=== PATIENT | female | born 2005 | race Two or more races ===

== ENCOUNTER 2024-04-04 16:49 | Outpatient (CLI) | payer MEDICAID, SELFPAY ==
[2024-04-04 17:02] VITALS: BP 110/66; RESP 16; TEMP 36.9; BMI 24.3
[2024-04-04 17:11] VITALS: BP 110/66; PULSE 57
--- NOTE | 2024-04-04 18:41 | XR_ITS ---
Examination: Biophysical profile, ultrasound Date and time of exam: April 04, 2024 1822 hrs. Indications: Small for gestational age Technique: Multiple transabdominal sonographic images of the pelvis abdomen obtained. Attention is directed to the breathing movement, gross body movement, amniotic fluid volume and tone. Findings: Amniotic fluid index 6.6 cm Total biophysical profile is 8 of 8. breathing movement is 2. Gross body movement is 2. tone is 2. Qualitative amniotic fluid volume is 2 Impression: Biophysical profile is 8 of 8.
== END 2024-04-04 20:22 | disposition home or self-care (01) ==
LOC: S4S1 16:51 → S4SX 20:04
PROVIDERS: Referring Provider Advanced Practice Midwife; Visit Provider Advanced Practice Midwife
DX: O36.8130 Decreased fetal movements, third trimester, not applicable or unspecified (principal); Z3A.39 39 weeks gestation of pregnancy
CPT/HCPCS: 59025; 76819

== ENCOUNTER 2024-04-15 00:38 | Inpatient (IN) | payer MEDICAID, SELFPAY ==
[2024-04-15] VITALS (341 sets, daily range): BP systolic 91–217; BP diastolic 50–92; PULSE 61–131; RESP 16–99; TEMP 36.6–37; O2SAT 86–100; BMI 24.8
[2024-04-15] MEDS: MORPHINE SULF INJ 10 MG/ML VIAL 5 MG IM (01:12)
[2024-04-15] MEDS: RINGERS LACTATED 1000 ML 1,000 ML 100 ML IV ×3 (04:00→16:50)
--- NOTE | 2024-04-15 04:00 | ESHP_ITS ---
Documentation for date of: 04/15/24 OB Labor/Induct. HPI History of Present Illness Chief complaint: 19 y/o 40w 4d presents to L&D in early labor at 3 cm : 2 Para: 0 Term pregnancies: 0 pregnancies: 0 Living children: 0 History of Abortions: Spontaneous and Elective: 0 History of Vaginal deliveries: 0 History of sections: No History of : No HELEN: 04/11/24 Gestational Age (weeks): 40 Gestational Age (days): 4 History of present illness: 19 y/o 40w 4d presents to L&D in early labor at 3 cm vertex lg 2-3 minutes with a category 1 tracing. GBS is neg. Pt has a hx of 1 SAB. Pt was a transfer of care from [facility] at 25 weeks with incomplete records. Pt was followed [facility] and small 2.8 mm VSD was noted. growth at 14%ile. EFW 3000g History of Present Dating criteria: based on LMP only Adequate Care: No Ultrasounds: normal mid trimester US and abnormal US findings (2.8 mm VSD noted) Obstetrical complications: other (SGA fetus) Labs Maternal Blood Type: O Pos Labs: Positive: Rubella Titre, Negative: RPR, Hepatitis B, HIV, Chlamydia, Gonorrhea and Group Beta Strep and Unknown: Herpes Type 1, Herpes Type 2 and Covid-19 Review of Systems Review of Systems Systems Reviewed: All systems reviewed, normal except as documented Past Medical History Surgical History SURGICAL: Negative Section Meds Home Medications and Allergies Home Medications ?Medication ?Instructions ?Recorded ?Confirmed ?Type vits no.130-ferrous fum tab 04/15/24 History 27 mg iron-folic acid 800 mcg tablet ( Vitamin) Allergies Allergy/AdvReac Type Severity Reaction Status Date / Time No Known Allergies Allergy Verified 04/15/24 00:44 OB Exam Physical Exam Vital signs: Temp Pulse Resp BP Pulse Ox 97.9 F 71 19 127/68 100 04/15/24 01:08 04/15/24 08:22 04/15/24 01:08 04/15/24 08:22 04/15/24 08:29 Constitutional Constitutional: moderate distress (Secondary to painful contractions) Routine HEENT Exam Head: Present normocephalic and atraumatic Eye: Present EOMI, PERRL and normal accommodation ENT: Present mucous membranes moist Routine Neck Exam Neck: Present full ROM Routine Respiratory Exam Respiratory: Absent respiratory distress Routine Cardiovascular Exam Cardiovascular: Present RRR Routine Abdominal Exam Abdominal: Present soft Comments: Gravid Uterus EFW 3000g Routine Exam External: Present normal urethra appearance; Absent lesions Detailed Labor and Delivery Exam Dilation (cm): 3 Effacement (%): 70 Cervix position: posterior station: -3 Consistency: soft Presentation: Vertex Membranes: intact Baseline heart rate: 130 monitor accelerations: 15x15 monitor decelerations: None group home variability: Moderate (11-25) Contraction frequency (min): 2-3 minutes Routine Extremities Exam Extremities: Present full ROM Routine Back/Spine/Pelvis Exam Back/Spine: Present full ROM Routine Skin Exam Skin: Present intact, dry and warm Routine Neurological Exam Neurological: Present alert, oriented X3 and CN II-XII intact Routine Psychiatric Exam Psychiatric: Present normal affect and normal thought process OB Results Labs 04/15/24 04:00 Labs: Short CBC 04/15/24 Range/Units 04:00 WBC 12.5 H (4.5-11.0) Thou/mm3 Hgb 11.6 L (12.0-16.0) g/dL Hct 34.1 L (36.0-46.0) % Plt Count 202 (140-440) Thou/mm3 OB Assessment & Plan Assessment and Plan (1) Normal labor: Status: Acute (2) 40 weeks gestation of : Status: Acute Additional Plan Induction method: none Plan: augmentation, anticipate NVD and consult prn Additional Plan Comment: Routine admit orders Consult anesthesia for an epidural Continuous EFM
[2024-04-15] MEDS: fentaNYL CIT INJ 50 mCg/ML AMP 2ML 100 MCG IV ×3 (04:01→21:44)
[2024-04-15 04:22] LABS: Basophils % (Auto) 0 % (0-2.5); Eosinophils % (Auto) 0 % (0-10); Hematocrit 34.1 % (36.0-46.0); Hemoglobin 11.6 g/dL (12.0-16.0); Immature Granulocytes % (Auto) 0 % (0-0); Immature Granulocytes Auto 0.05 Thou/mm3 (0.00-0.00); Lymphocytes # (Auto) 1.8 Thou/mm3 (1.0-4.8); Lymphocytes % (Auto) 14 % (10-50); Mean Corpuscular Hemoglobin 27.2 pg (25.0-35.0); Mean Corpuscular Volume 80 fL (80-100); Monocytes # (Auto) 0.4 Thou/mm3 (0.0-0.8); Monocytes % (Auto) 3 % (0-12); Neutrophils # (Auto) 10.2 Thou/mm3 (1.8-7.7); Neutrophils % (Auto) 82 % (37-80); Nucleated Red Blood Cell % 0 /100 WBC (0); Platelet Count 202 Thou/mm3 (140-440); RDW Standard Deviation 38.4 fL (36.4-46.3); Red Blood Count 4.26 Miln/mm3 (4.00-5.20); White Blood Count 12.5 Thou/mm3 (4.5-11.0)
[2024-04-15] MEDS: RINGERS LACTATED 500 ML 500 ML 999 ML IV (04:30)
[2024-04-15 04:57] LABS: Syphilis Nonreactive (Nonreactive)
--- NOTE | 2024-04-15 07:11 | PC.NURSE ---
0600: urine sample collected for UDS for late to care. Pt has already been given dose of Morphine IM and Fentanyl IV prior to collection of sample.
--- NOTE | 2024-04-15 08:41 | PD.LDPN ---
Documentation for date of: 04/15/24 OB Labor Progress Note Pain Control Pain control: epidural Pelvic Exam Dilation (cm): 5 Effacement (%): 80 station: -2 Amniotic membrane status: Ruptured (SROM- clear) Contractions Monitor mode: External Contraction frequency: 2-3 minutes Contraction intensity: Moderate Status status: Category l Assessment and Plan Assessment: other (Latent labor) Plan OB labor note: continuous present management Comments: Pt is progressing well since admission Comfortable with the epidural Anticipate
[2024-04-15 09:49] LABS: Amphetamine/Metham Scrn,Ur OB Negative (Negative); Benzoylecgonine Screen, Ur OB Negative (Negative); Opiate Screen,Urine OB Positive (Negative); THC Screen,Urine OB Negative (Negative)
[2024-04-15 09:50] LABS: Opiates U Confirm* See Sep Rpt
--- NOTE | 2024-04-15 20:03 | PD.LDPN ---
Documentation for date of: 04/15/24 OB Labor Progress Note Pain Control Pain control: epidural Pelvic Exam Dilation (cm): 5 Effacement (%): 80 station: 0 Amniotic membrane status: Ruptured Contractions Monitor mode: External Contraction frequency: 2-3 minutes Contraction intensity: Moderate Status status: Category l Assessment and Plan Assessment: other (Latent labor) Plan OB labor note: continuous present management Comments: AROM performed on the forebag- cleat to bloody fluids noted Start low dose pitocin per protocol Updated Dr. Lamb Anticipate
[2024-04-15] MEDS: HYDROmorphone INJ 2 MG/ML VIAL 0.4 MG IVP (20:47)
[2024-04-15] MEDS: DiphenhydrAMINE INJ 50 MG/ML VIAL 25 MG IVP (21:50)
[2024-04-16] VITALS (118 sets, daily range): BP systolic 90–144; BP diastolic 54–84; PULSE 75–181; RESP 15–16; TEMP 36.7–37.2; O2SAT 90–100
[2024-04-16] MEDS: OXYTOCIN in NS 30 units 30 UNIT/500 ML BAG IV (01:26)
--- NOTE | 2024-04-16 04:59 | PD.LDPN ---
Documentation for date of: 04/16/24 OB Labor Progress Note Pain Control Pain control: epidural Pelvic Exam Dilation (cm): 10 Effacement (%): 100 station: +1 Amniotic membrane status: Ruptured Contractions Monitor mode: External Contraction frequency: 2-3 minutes Contraction duration: 40-60 Contraction phase: Contraction Contraction intensity: Moderate Status status: Category ll Assessment and Plan Assessment: other (2nd stage ) Comments: Active pushing for 20 minutes pt did not move the head, pt has no feeling or urse to push Turned off the epidural Let pt labor down for 30 minutes until she has urge to push Anticipate
[2024-04-16] MEDS: RINGERS LACTATED 1000 ML 1,000 ML 100 ML IV (05:07)
[2024-04-16] MEDS: MINERAL OIL 30 ML UDC TOP (06:45)
[2024-04-16] MEDS: OXYTOCIN in NS 20 units 20 UNIT/1,000 ML BAG 125 UNIT IV (06:57)
[2024-04-16] MEDS: LIDOCAINE HCL 1% 20 ML VIAL INFL (06:58)
[2024-04-16] MEDS: TRANEXAMIC ACID 1,000 MG IVPB 1,000 MG/100 ML BAG 200 MG IV (07:08)
--- NOTE | 2024-04-16 07:18 | OBDSUM_ITS ---
Data ([place]) Data Hx Section: No Maternal Blood Type: O Pos Rubella Titre: Positive RPR: Non-reactive Labs: Negative: RPR, Hepatitis B, HIV, Chlamydia, Gonorrhea and Group Beta Strep and Unknown: Herpes Type 1 and Herpes Type 2 : 2 Para: 0 Term: 0 : 0 Livin : 1 Delivery Data ([place]) Labor Data Stimulated/Augmented: No Induction: No ROM Date: 04/15/24 ROM Time: 07:35 Rupture Type: SROM Amniotic Fluid: Clear Delivery Data EDC: 04/11/24 EDC calculated by:: LMP Labor Onset Stage 1 Date: 04/16/24 Labor Onset Stage 1 Time: 00:34 Labor Onset Stage 2 Date: 04/16/24 Labor Onset Stage 2 Time: 04:18 Delivery Date: 04/16/24 Delivery Time: 06:55 Gestational age (weeks): 40 Gestational age (days): 5 Placenta Delivery Date: 04/16/24 Placenta Delivery Time: 06:57 Delivered by: Linda Muniz Delivery nurse: Bertha Weems Route Delivery Supervisor at delivery: No Support person(s) at delivery: FOB Other staff at delivery: Nursery Nurse Other staff at delivery: Nursery Nurse Other staff at delivery: 2nd Nurse Other staff at delivery: Verna Enciso Other staff at delivery: Chelsea Murguia Other staff at delivery: LOREE NEWTON Delivery Method Delivery: Vaginal Delivery Type: Spontaneous Presentation: Compound (Left hand) Position: OA Anesthesia Type Primary Anesthesia: Epidural Secondary Anesthesia: Spinal Delivery Room Medications Other Intrapartum Medications: No Placenta Placenta Delivery: Spontaneous Placenta Cultures Obtained: No Placenta Sent for Examination: No Cord Sample: Cord Blood Obtained Episiotomy Episiotomy: None Lacerations #1: Perineal: 1st degree Perineal repair Sutures used for repair: 3.0 Vicryl (CT) EBL Estimated blood loss (ml): 300 Umbilical Cord Umbilical Vessels: 3 Nuchal Cord: Not Applicable Body Cord: Not Applicable Additional Procedures patient pushed for about 2 hours and had an of a viable female . Infant delivered in compound presentation with a left posterior hand and arm delivered first then the anterior shoulder delivered with gentle downward traction and the body without complications. Infant placed on mother's abdomen. Vigorous cry upon delivery. Cord was clamped. Cut by FOB. Cord blood obtained. Three-vessel cord noted. Placenta expelled spontaneously and intact. Patient had a first-degree perineal laceration. Repaired using a 3-[address] suture. Excellent hemostasis achieved after vigorous fundal massage and removal of clots from the posterior fornix. EBL 300. Sponge and needle count correct. Mother and baby stable, skin to skin and bonding in LDR. Data ([place]) [place] Data Gender: Female Infant Weight Grams: 2990 1 Minute Total: 7 5 Minute Total: 9
[2024-04-16] MEDS: BENZO/LANO/ALOE (Dermoplast) 60 GM CAN 1 SPRAY TOP (07:29)
[2024-04-16] MEDS: IBUPROFEN TAB 400 MG TABLET 800 MG PO ×2 (10:58→19:16)
[2024-04-16 13:43] LABS: Basophils % (Auto) 0 % (0-2.5); Eosinophils % (Auto) 0 % (0-10); Hematocrit 26.4 % (36.0-46.0); Immature Granulocytes % (Auto) 1 % (0-0); Immature Granulocytes Auto 0.09 Thou/mm3 (0.00-0.00); Lymphocytes # (Auto) 1.6 Thou/mm3 (1.0-4.8); Lymphocytes % (Auto) 9 % (10-50); Mean Corpuscular HGB Conc 33.3 g/dl (31.0-37.0); Mean Corpuscular Hemoglobin 27.2 pg (25.0-35.0); Mean Corpuscular Volume 82 fL (80-100); Monocytes # (Auto) 0.7 Thou/mm3 (0.0-0.8); Monocytes % (Auto) 4 % (0-12); Neutrophils # (Auto) 14.4 Thou/mm3 (1.8-7.7); Neutrophils % (Auto) 86 % (37-80); Nucleated Red Blood Cell % 0 /100 WBC (0); Platelet Count 176 Thou/mm3 (140-440); RDW Standard Deviation 41.1 fL (36.4-46.3); Red Blood Count 3.24 Miln/mm3 (4.00-5.20); White Blood Count 16.8 Thou/mm3 (4.5-11.0)
[2024-04-16 13:52] LABS: Hemoglobin 8.8 g/dL (12.0-16.0)
[2024-04-17 05:13] VITALS: BP 113/71; PULSE 77; RESP 16; TEMP 36.3; O2SAT 96
[2024-04-17] MEDS: IBUPROFEN TAB 400 MG TABLET 800 MG PO (05:34)
--- NOTE | 2024-04-17 07:25 | ESDS_ITS ---
DS: Providers Provider Date of admission: 04/15/24 03:47 Primary care physician: Navi Willis MD Admitting Provider: Linda Muniz CNM Attending Provider on Admission: Prosper Tolliver MD Attending Provider on DC: Linda Muniz CNM Discharging Provider: Linda Muniz CNM Anticipated date of discharge: 04/17/24 DS: Diagnosis Discharge Diagnosis (1) Normal spontaneous vaginal delivery: Status: Acute (2) Encounter for care of lactating mother: Status: Acute (3) 40 weeks gestation of : Status: Acute (4) Normal labor: Status: Acute Problem List Completed Was Problem List Reviewed/Reconciled?: Yes Summary/Hosp Course Brief History: 19 y/o 40w 4d presents to L&D in early labor at 3 cm vertex lg 2-3 minutes with a category 1 tracing. GBS is neg. Pt has a hx of 1 SAB. Pt was a transfer of care from [place] at 25 weeks with incomplete records. Pt was followed [facility] and small 2.8 mm VSD was noted. growth at 14%ile. EFW 3000g. 04/16/24: patient pushed for about 2 hours and had an of a viable female . Infant delivered in compound presentation with a left posterior hand and arm delivered first then the anterior shoulder delivered with gentle downward traction and the body without complications. Infant placed on mother's abdomen. Vigorous cry upon delivery. Cord was clamped. Cut by FOB. Cord blood obtained. Three-vessel cord noted. Placenta expelled spontaneously and intact. Patient had a first-degree perineal laceration. Repaired using a 3-[address] suture. Excellent hemostasis achieved after vigorous fundal massage and removal of clots from the posterior fornix. EBL 300. Sponge and needle count correct. Mother and baby stable, skin to skin and bonding in LDR. 04/17/24: day 1. Patient is stable and afebrile. Doing well. Denies dizziness shortness of breath. Reports minimal bleeding. Uterus is nontender fundus firm minimal lochia. Patient is eager to go home. Discharge instructions given. Patient to follow-up with Linda Muniz CNM in 3 weeks Peripartum Data Delivery Method: Normal Vaginal Delivery Episiotomy Description: None Laceration Description: yes and see Delivery Summary 1: Gender: Female Disposition of : home Status at Discharge Cognitive/behavioral status at discharge: Alert and oriented x 3 Time Spent with Patient Time attestation: Total time spent providing and/or coordinating discharge services: Time spent: Greater than 30 minutes Exam Vital Signs Temp Pulse Resp BP Pulse Ox 98.6 F 105 H 16 136/78 H 97 04/16/24 00:38 04/16/24 07:02 04/15/24 15:11 04/16/24 07:17 04/16/24 06:54 Constitutional Constitutional: no acute distress Routine HEENT Exam Head: Present normocephalic and atraumatic Eye: Present EOMI, PERRL and normal accommodation ENT: Present mucous membranes moist Routine Neck Exam Neck: Present supple, full ROM and trachea midline Routine Respiratory Exam Respiratory: Present chest non-tender, lungs clear, normal breath sounds and no resp distress Routine Cardiovascular Exam Cardiovascular: Present RRR Routine Abdominal Exam Abdominal: Present soft and normoactive bowel sounds; Absent tenderness or distended Comments: Uterus nontender Fundus firm Routine Exam Patient deferred: external exam Routine Extremities Exam Extremities: Present full ROM, pulses intact and normal capillary refill; Absent calf tenderness or tenderness Routine Back/Spine/Pelvis Exam Back/Spine: Present full ROM Routine Skin Exam Skin: Present intact, dry and warm Routine Neurological Exam Neurological: Present alert, oriented X3 and CN II-XII intact Routine Psychiatric Exam Psychiatric: Present normal affect and normal thought process Discharge Plan Plan Patient Disposition: HOME (Self Care) Patient condition on transfer: Stable Prescriptions/Referrals Prescriptions/Med Rec: New ibuprofen 800 mg tablet 800 mg PO Q6H MDD 4 PRN (Reason: pain) Qty: 120 0RF docusate sodium [Colace] 100 mg capsule 100 mg PO BID Qty: 60 0RF lanolin 50 % ointment 1 applic topical TID PRN (Reason: skin irritation) Qty: 15 0RF Continued Vitamin 27 mg iron- 800 mcg tablet Patient Comments: TAKE 1 TABLET BY MOUTH ONCE A DAY Referrals: Linda Muniz CNM [Certified Nurse Butcher'S Assistant] - Patient/Caregiver Discharge Instructions Meds to Beds: No Discharge Activity: activity as tolerated Other Discharge Activity Instructions:: Follow-up with Linda Muniz CNM in 3 weeks Education Materials: Recognizing Labor, Stages of Labor, Labor Pain Manage Wo Meds Print Language: Zambian Stand Alone Forms: Steff Award Info., Patient Portal Info Letter, Work/Release Restrictions Discharge Order Discharge Orders: Discharge (Routine); Ordered 04/17/24 Ordered By: Linda Muniz Planned Discharge Date 04/17/24
[2024-04-17 08:00] VITALS: BP 106/69; PULSE 74; RESP 18; TEMP 36.8; O2SAT 98
== END 2024-04-17 12:55 | disposition home or self-care (01) | DRG 560 ==
LOC: S4SX 04-16 14:04 → S4NX 04-16 17:14
PROVIDERS: Admitting Provider Nurse Practitioner Women's Health; PCP Family Medicine; Visit Provider Obstetrics & Gynecology
DX: O36.5930 Maternal care for other known or suspected poor fetal growth, third trimester, not applicable or unspecified (principal); Z37.0 Single live birth; Z3A.40 40 weeks gestation of pregnancy; O70.0 First degree perineal laceration during delivery; O32.6XX0 Maternal care for compound presentation, not applicable or unspecified
CPT/HCPCS: 36415; 59409; 80307; 85025; 86780; 86850; 86900; 86901; 94762; J1200; J2270; J2590; J2795; J3010; J3490; J7120; A9270

== ENCOUNTER 2024-04-18 19:48 | Emergency (ER) | payer MEDICAID, SELFPAY ==
[2024-04-18 20:38] VITALS: BP 184/98; PULSE 57; RESP 21; TEMP 36.9; O2SAT 99
--- NOTE | 2024-04-18 20:43 | PD.EDRME ---
Rapid Medical Screening Exam RME Arrival date/time: 04/18/24 19:48 Chief Complaint: Skin/Abscess/Foreign Body Time Seen by Provider: 04/18/24 20:01 Vital signs: Vital Signs Temperature 98.5 F 04/18/24 20:38 Pulse Rate 57 L 04/18/24 20:38 Respiratory Rate 21 H 04/18/24 20:38 Blood Pressure 184/98 H 04/18/24 20:38 Pulse Oximetry (%) 99 04/18/24 20:38 Oxygen Delivery Method Room Air 04/18/24 20:38 E Narrative: c/o vaginal pain. Hx 2 days ago, 1st degree perineal tear with 1 suture.
--- NOTE | 2024-04-18 21:30 | PC.NURSE ---
CALLED X 3 TO GIVE PAIN MED BUT NO ANSWER AT ER LOBBY OR OUTSIDE ER.
== END 2024-04-18 21:31 | disposition left against medical advice (07) ==
LOC: SERX 21:52
PROVIDERS: Emergency Provider Emergency Medicine
DX: R10.2 Pelvic and perineal pain (principal); Z53.29 Procedure and treatment not carried out because of patient's decision for other reasons
CPT/HCPCS: 81001; 99281